=== PATIENT | female | born 1940 | race African-American/Black ===

== ENCOUNTER 2016-07-02 09:05 | Inpatient (IN) | payer OTHER ==
[~2016-07-02] VITALS: Ht 157.5 cm; Wt 54.9 kg
[~2016-07-02 09:05] MED LIST: AMLO10TA4 PO; AMOX1TAB61 PO; APIX5TAB PO; CIPR250T PO; FURO40TA4 PO; IPRA4AER IH; LOSA50TA2 PO; METH4TAB2 PO; POTA20TA4 PO; PROAIR HFA8.5 GM IH; VALS320T2 PO
--- NOTE | 2016-07-02 09:10 | PHYS DOC ---
Past Medical History Past Medical History: COPD, Hypertension, Other Additional Past Medical Histor: SARCOIDOSIS, IRREGULAR HEART RHYTHM,ANDREAFSKI Past Surgical History: Hysterectomy Alcohol Use: None Drug Use: None Adult General Chief Complaint Chief Complaint: COUGH HPI HPI Patient is a 76 year old female who presents with productive cough. She states this started approximately week ago. She states her shortness of breath is consistent. She denies any fevers chills nausea or vomiting. She states her inhalers are helping her. Review of Systems Review of Systems Constitutional: Denies fever or chills [] Eyes: Denies change in visual acuity, redness, or eye pain [] HENT: Denies nasal congestion or sore throat [] Respiratory: Positive for productive cough Cardiovascular: No additional information not addressed in HPI [] GI: Denies abdominal pain, nausea, vomiting, bloody stools or diarrhea [] : Denies dysuria or hematuria [] Musculoskeletal: Denies back pain or joint pain [] Integument: Denies rash or skin lesions [] Neurologic: Denies headache, focal weakness or sensory changes [] Endocrine: Denies polyuria or polydipsia [] Current Medications Current Medications Current Medications Medications (Trade) Dose Ordered Sig/Jerod Start Time Stop Time Status Last Admin Dose Admin Albuterol/ Ipratropium (Duoneb) 3 ml 1X ONCE 07/02/16 10:00 07/02/16 10:05 DC 07/02/16 10:16 3 ML Azithromycin (Zithromax 500mg Ivpb For Omni) 250 ml @ 250 mls/hr 1X ONCE 07/02/16 10:00 07/02/16 10:59 DC 07/02/16 11:32 250 MLS/HR Methylprednisolone Sodium Succinate (Solu-Medrol 125mg Vial) 125 mg 1X ONCE 07/02/16 10:00 07/02/16 10:05 DC 07/02/16 11:31 125 MG Allergies Allergies Allergies Coded Allergies Type Severity Reaction Last Updated Verified No Known Drug Allergies 06/26/14 No Physical Exam Physical Exam Constitutional: Well developed, well nourished, no acute distress, non-toxic appearance. [] HENT: Normocephalic, atraumatic, bilateral external ears normal, oropharynx moist, no oral exudates, nose normal. [] Eyes: PERRLA, EOMI, conjunctiva normal, no discharge. [] Neck: Normal range of motion, no tenderness, supple, no stridor. [] Cardiovascular:Heart rate regular rhythm, no murmur [] Lungs & Thorax: Decreased breath sounds with mild expiratory wheezing bilaterally. Abdomen: Bowel sounds normal, soft, no tenderness, no masses, no pulsatile masses. [] Skin: Warm, dry, no erythema, no rash. [] Back: No tenderness, no CVA tenderness. [] Extremities: No tenderness, no cyanosis, no clubbing, ROM intact, no edema. [] Neurologic: Alert and oriented X 3, normal motor function, normal sensory function, no focal deficits noted. [] Psychologic: Affect normal, judgement normal, mood normal. [] Current Patient Data Vital Signs Vital Signs Date Time Temp Pulse Resp B/P Pulse Ox O2 Delivery O2 Flow Rate FiO2 07/02/16 12:19 80 130/95 98 Nasal Cannula 4 07/02/16 09:43 24 Lab Values Laboratory Tests Test 07/02/16 10:05 White Blood Count 10.5x10^3/uL (4.0-11.0) Red Blood Count 3.29x10^6/uL (3.50-5.40) L Hemoglobin 10.2g/dL (12.0-15.5) L Hematocrit 30.7% (36.0-47.0) L Mean Corpuscular Volume 93fL (79-100) Mean Corpuscular Hemoglobin 31pg (25-35) Mean Corpuscular Hemoglobin Concent 33g/dL (31-37) Red Cell Distribution Width 15.2% (11.5-14.5) H Platelet Count 278x10^3/uL (140-400) Neutrophils (%) (Auto) 77% (31-73) H Lymphocytes (%) (Auto) 5% (24-48) L Monocytes (%) (Auto) 17% (0-9) H Eosinophils (%) (Auto) 0% (0-3) Basophils (%) (Auto) 0% (0-3) Neutrophils # (Auto) 8.1x10^3uL (1.8-7.7) H Lymphocytes # (Auto) 0.5x10^3/uL (1.0-4.8) L Monocytes # (Auto) 1.8x10^3/uL (0.0-1.1) H Eosinophils # (Auto) 0.0x10^3/uL (0.0-0.7) Basophils # (Auto) 0.0x10^3/uL (0.0-0.2) Segmented Neutrophils % 81% (35-66) H Lymphocytes % 4% (24-48) L Atypical Lymphocytes % (Manual) 1% (0-0) H Monocytes % 13% (0-10) H Eosinophils % 1% (0-5) Platelet Estimate Adequate (ADEQUATE) Anisocytosis Present Sodium Level 140mmol/L (136-145) Potassium Level 3.3mmol/L (3.5-5.1) L Chloride Level 102mmol/L (98-107) Carbon Dioxide Level 31mmol/L (21-32) Anion Gap 7 (6-14) Blood Urea Nitrogen 30mg/dL (7-20) H Creatinine 1.0mg/dL (0.6-1.0) Estimated GFR (Cockcroft-Gault) 64.9 Glucose Level 111mg/dL (70-99) H Calcium Level 9.0mg/dL (8.5-10.1) Magnesium Level 1.9mg/dL (1.8-2.4) Total Bilirubin 1.2mg/dL (0.2-1.0) H Direct Bilirubin 0.5mg/dL (0.0-0.2) H Aspartate Amino Transferase (AST) 40U/L (15-37) H Alanine Aminotransferase (ALT) 44U/L (14-59) Alkaline Phosphatase 95U/L (46-116) Creatine Kinase 500U/L (26-192) H Creatine Kinase MB (Mass) 3.5ng/mL (0.0-3.6) Creatine Kinase MB Relative Index 0.7% (0-4) Troponin I Quantitative < 0.017ng/mL (0.000-0.055) JU-Ptz-H-Type Natriuretic Peptide 3306pg/mL (0-449) H Total Protein 8.0g/dL (6.4-8.2) Albumin 2.7g/dL (3.4-5.0) L Thyroid Stimulating Hormone (TSH) 1.285uIU/mL (0.358-3.74) Laboratory Tests 07/02/16 10:05 Laboratory Tests 07/02/16 10:05 EKG EKG EKG shows sinus rhythm with a rate of [address] elevations, T-wave inversions noted in lead 3, QTC 431 ms, normal axis, as interpreted me. Radiology/Procedures Radiology/Procedures [facility] [address] [place] [address] IMAGING REPORT Signed PATIENT: ESSENCE DE JESUS ACCOUNT: [id number] : 1940 LOCATION: ER AGE: 76 SEX: F EXAM STATUS: REG ER ORD. PHYSICIAN: KRISTA ADAMES MD REASON: soa PROCEDURE: PORTABLE CHEST 1V Portable AP upright chest x-ray performed at 09 41 Indications: COPD. Productive cough for past week. Comparison: April 27, 2016. Increasing bilateral perihilar lung infiltrates are seen. Small bilateral pleural effusions are seen. The heart size is prominent but stable. The mediastinum is unchanged. Old calcified atheromatous disease is seen. No pneumothorax is evident. IMPRESSION: Enlarging perihilar lung infiltrates. This may represent pneumonia or aspiration pneumonitis. DICTATED and SIGNED BY: NATASHA ALVAREZ MD DATE: 07/02/16 1044 CC: KRISTA ADAMES MD; PAOLA MORALES MD ~ Impressions: COPD exacerbation Course & Med Decision Making Course & Med Decision Making Pertinent Labs and Imaging studies reviewed. (See chart for details) X-ray is read out as aspiration versus worsening pneumonia. Patient was given Solu-Medrol, nebs and azithromycin. Blood cultures have been obtained. We'll admit to hospitalist with pulmonary consultation. The patient's in stable condition at this time. Dragon Disclaimer Dragon Disclaimer This electronic medical record was generated, in whole or in part, using a voice recognition dictation system. Departure Departure Impression: Primary Impression: COPD exacerbation Disposition: ADMITTED INPATIENT Admitting Physician: Martha Thornton Condition: STABLE Referrals: PAOLA MORALES MD (PCP) KRISTA ADAMES MD Jul 02, 2016 09:09
[2016-07-02] MEDS ORDERED: IPRATRPIUM/ALBUTEROL 0.5/2.5MG 3 ML NEBU. NEB ONE (10:00)
[2016-07-02] MEDS ORDERED: AZITHRMYCN 500MG IVPB FOR OMNI 250 ML IV ONE (10:00)
[2016-07-02] MEDS ORDERED: methylPREDNISolone SOD SUCC PF 125 MG/2 ML VIAL. IV ONE (10:00)
[2016-07-02 10:28] LABS: BASO % 0 % (0-3); EOS % 0 % (0-3); HEMATOCRIT 30.7 % (36.0-47.0); HEMOGLOBIN 10.2 g/dL (12.0-15.5); LYMPH # 0.5 x10^3/uL (1.0-4.8); LYMPH % 5 % (24-48); MEAN CORPUSCULAR HEMOGLOBIN 31 pg (25-35); MEAN CORPUSCULAR HGB CONC 33 g/dL (31-37); MEAN CORPUSCULAR VOLUME 93 fL (79-100); MONO % 17 % (0-9); NEUT % 77 % (31-73); PLATELET COUNT 278 x10^3/uL (140-400); RED BLOOD COUNT 3.29 x10^6/uL (3.50-5.40); RED CELL DISTRIBUTION WIDTH 15.2 % (11.5-14.5); WHITE BLOOD COUNT 10.5 x10^3/uL (4.0-11.0)
[2016-07-02 10:33] LABS: GFR 64.9; POTASSIUM 3.3 mmol/L (3.5-5.1)
[2016-07-02 10:40] LABS: ALBUMIN 2.7 g/dL (3.4-5.0); DIRECT BILIRUBIN 0.5 mg/dL (0.0-0.2); MAGNESIUM 1.9 mg/dL (1.8-2.4); TOTAL BILIRUBIN 1.2 mg/dL (0.2-1.0)
--- NOTE | 2016-07-02 10:49 | RAD ---
Portable AP upright chest x-ray performed at 09 41 Indications: COPD. Productive cough for past week. Comparison: April 27, 2016. Increasing bilateral perihilar lung infiltrates are seen. Small bilateral pleural effusions are seen. The heart size is prominent but stable. The mediastinum is unchanged. Old calcified atheromatous disease is seen. No pneumothorax is evident. IMPRESSION: Enlarging perihilar lung infiltrates. This may represent pneumonia or aspiration pneumonitis.
[2016-07-02 10:50] LABS: CKMB INDEX 0.7 % (0-4); CKMB MASS 3.5 ng/mL (0.0-3.6)
[2016-07-02 11:36] LABS: % EOS 1 % (0-5)
[2016-07-02 11:37] LABS: ANISOCYTOSIS PRESENT; PLT ESTIMATE ADEQUATE (ADEQUATE)
[2016-07-02 12:45] LABS: BILIRUBIN,URINE SMALL (NEG); GLUCOSE,URINE NEGATIVE (NEG); NITRITE,URINE NEGATIVE (NEG); PROTEIN,URINE 30 mg/dL (NEG-TRACE)
[2016-07-02 12:54] LABS: BACTERIA,URINE 0 /HPF (0-FEW); RBC,URINE 20-40 /HPF (0-2); SQUAMOUS EPITHELIAL CELL,UR MOD /LPF
--- NOTE | 2016-07-02 14:05 | EKG ---
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
[2016-07-02] MEDS ORDERED: IPRATRPIUM/ALBUTEROL 0.5/2.5MG 3 ML NEBU. ONE (16:45)
--- NOTE | 2016-07-02 18:17 | ACF ---
Admission Forms Criteria COPD Clinical Indications for Admission to Inpatient Care (Place 'X' for any and all applicable criteria): Admission is indicated for ANY ONE of the following (1)(2)(3): [X]I. Acute exacerbation by high-risk comorbidity (e.g., pneumonia, dysrhythmia, heart failure, pleural effusion, pneumothorax) or severe underlying COPD (e.g., steroid dependent) [ ]II. Inpatient admission required rather than observation care (see Chronic Obstructive Pulmonary Disease: Observation Care) because of ANY ONE of the following: [ ]a) New or pre-existing signs or symptoms of COPD (eg, dyspnea or Tachypnea at rest or with minimal activity) that persist despite outpatient and observation care treatment [ ]b) New-onset hypoxemia (room air SaO2 less than 90%, PO2 less than 60 mm Hg (8.0 kPa)) that persists despite outpatient and observation care treatment [ ]c) Worsening of pre-existing hypoxemia (eg, new or increased requirement for supplemental oxygen to maintain oxygenation at baseline level) that persists despite outpatient and observation care treatment, with oxygen treatment needs performable only in acute inpatient setting [ ]d) Hypercarbia (PCO2 greater than 40 mm Hg (5.3 kPa))-induced respiratory acidosis (pH less than 7.35) that persists despite outpatient and observation care treatment [ ]e) Supplemental oxygen or respiratory treatments for over 24 hours that are performable only in acute inpatient setting [ ]f) Chest tube placement with active evacuation (e.g., suction, drainage) (5) [ ]g) Other condition, treatment or monitoring requiring inpatient admission [ ]III. Planned invasive surgical or diagnostic procedures requiring acute- care hospitalization [ ]IV. Acute respiratory failure (e.g., uncompensated hypercarbia, severe hypoxemia) [ ]V. Severe comorbid condition (e.g., severe steroid myopathy, acute vertebral fracture) that has acutely worsened pulmonary function [ ]. Confusion state, lethargy, obtundation, stupor or coma Extended stay beyond goal length of stay may be needed for (31)(32): [ ]a ) Respiratory Failure. [ ]b) Severe or persisting hypoxemia or hypercarbia [ ]c) Severe or persistent dyspnea [ ]d) Comorbidities (e.g. chronic heart failure, atrial fibrillation with rapid response, pneumonia) [ ]e) Malnutrition The original [facility] content created by [facility] has been revised. The portions of the content which have been revised are identified through the use of italic text or in bold, and [facility] has neither reviewed nor approved the modified material. All other unmodified content is copyright [facility]. Please see references footnoted in the original [facility] edition 2016 Admission Criteria Met?: Yes AMIE NIEVES Jul 02, 2016 18:17
[2016-07-02 19:00] VITALS: BP 112/60
--- NOTE | 2016-07-02 20:15 | HP ---
ADMIT DATE: 07/02/2016 CHIEF COMPLAINT: Shortness of breath, cough, and wheezing. HISTORY OF PRESENT ILLNESS: The patient is a pleasant 76-year-old female who has known COPD, although she states she quit smoking years ago. She also has sarcoidosis and basically presented to the ER with shortness breath and cough. Clinically, she sounds like she has aspiration. She is quite gurgling her upper airway. She is coarsed. She is coughing. She is hypoxic. I discussed the case with the ER physician. We suspect she has aspiration pneumonia. We are going to admit the patient and consult pulmonary medicine. PAST MEDICAL HISTORY: Previous tobacco abuse, although she states she quit years ago, sarcoidosis, cardiac arrhythmias, and hysterectomy. ALLERGIES: None. FAMILY HISTORY: Coronary artery disease. SOCIAL HISTORY: She quit smoking, no drinking or drugs. MEDICATIONS: Reviewed, please refer to the MRAD. REVIEW OF SYSTEMS: GENERAL: No history of weight change, weakness or fevers. SKIN: No bruising, hair changes or rashes. EYES: No blurred, double or loss of vision. NOSE AND THROAT: No history of nosebleeds, hoarseness or sore throat. HEART: No history of palpitations, chest pain or shortness of breath on exertion. LUNGS: She complains of shortness of breath and cough. GASTROINTESTINAL: Denies changes in appetite, nausea, vomiting, diarrhea or constipation. GENITOURINARY: No history of frequency, urgency, hesitancy or nocturia. NEUROLOGIC: Denies history of numbness, tingling, tremor or weakness. PSYCHIATRIC: No history of panic, anxiety or depression. ENDOCRINE: No history of heat or cold intolerance, polyuria or polydipsia. EXTREMITIES: Denies muscle weakness, joint pain, pain on walking or stiffness. PHYSICAL EXAMINATION: VITAL SIGNS: Temperature afebrile, pulse 67, respirations 24, and blood pressure 113/90. GENERAL: She is alert, talkative, but very coarse sounds. She sounds sick at the bedside. HEART: Distant S1, S2. LUNGS: Very coarse, she has got coughing, she has got gurgling in her upper airway. ABDOMEN: Positive bowel sounds. EXTREMITIES: No edema. SKIN: No rashes. PSYCHIATRIC: She is anxious. VASCULAR: Good capillary refill. ENDOCRINE: No thyromegaly. LYMPHATICS: No cervical nodes. HEMATOPOIETIC: No bruising. LABORATORY DATA: White count 10, hemoglobin 10, and platelets 278. Electrolytes: Sodium 140, potassium 3.3, chloride 102, bicarbonate 31, BUN is 30, creatinine 1.0, glucose 111. CPK is 500, troponin is 0, BNP 3306. DIAGNOSTIC DATA: Chest x-ray shows aspiration pneumonia. ASSESSMENT AND PLAN: 1. Respiratory failure with aspiration pneumonia and chronic obstructive pulmonary disease. 2. Hypokalemia, probable acute on chronic systolic and diastolic heart failure and perhaps even a mild case of rhabdomyolysis with the CPK of 500. The patient has been admitted. We will give her intravenous antibiotics, breathing treatments, oxygen and steroids. Consult Dr. Morales, consult Cardiology. We will try to diurese her. Continue her home medicines. PROGNOSIS: Guarded. EMILY CUEVAS DO DR: FREDERICK/cate JOB#: [id number] / [id number]
[2016-07-02 23:00] VITALS: BP 103/57
[2016-07-03] MEDS ORDERED: GUAIFENESIN DM 200MG/20MG 10 ML SYRUP. PO PRN
[2016-07-03] MEDS ORDERED: IPRATRPIUM/ALBUTEROL 0.5/2.5MG 3 ML NEBU. NEB ONE (00:45)
[2016-07-03 03:00] VITALS: BP 107/56
[2016-07-03 06:19] VITALS: BP 107/56
[2016-07-03 07:00] VITALS: BP 109/64
[2016-07-03] MEDS: IPRATRPIUM/ALBUTEROL 0.5/2.5MG 3 ML NEBU. NEB SCH ×3 (07:58→20:22)
--- NOTE | 2016-07-03 10:54 | PDOC2 ---
CARDIAC CONSULT DATE OF CONSULT Date of Consult DATE: 07/03/16 TIME: 10:44 REASON FOR CONSULT Reason for Consult: CHF? REFERRING PHYSICIAN Referring Physician: Hillary SOURCE Source: Chart review, Patient HISTORY OF PRESENT ILLNESS HISTORY OF PRESENT ILLNESS This is a pleasant 76 yo female admitted for complains of increased coughing and nasal congestion. This has been increasing in the last week. Reports no fever or chills and no increased Oxygen rate in which typically she uses 3LPM at rest and about 6 LPM with activity. Denies any leg swelling and complains no significant SOA or changes in her activity tolerance. She verbalized compliance with her medications. Her secretions does started to become more thick and yellow accdg to her daughter which made her a little more worried. Pt described her coughing as "rattling." Also she has not been hydrating her self well enough. No CP, nausea, vomiting or diarrhea. PAST MEDICAL HISTORY Past Medical History Cardiovascular: AFIB, CHF, HTN Pulmonary: COPD (with home O2), Pneumonia, Other (sarcoidosis) CENTRAL NERVOUS SYSTEM: Other (no pertinent hx) GI: No pertinent hx Heme/Onc: No pertinent hx Psych: Anxiety Musculoskeletal: Other (no pertinent hx) Rheumatologic: No pertinent hx Infectious disease: No pertinent hx ENT: No pertinent hx Renal/: No pertinent hx Endocrine: No pertinent hx Dermatology: No pertinent hx PAST SURGICAL HISTORY Past Surgical History: Hysterectomy FAMILY HISTORY Family History: Hypertension SOCIAL HISTORY Smoke: No (quit) ALCOHOL: none Drugs: None Lives: with Family CURRENT MEDICATIONS CURRENT MEDICATIONS Current Medications Medications (Trade) Dose Ordered Sig/Jerod Route PRN Reason Start Time Stop Time Status Last Admin Dose Admin Albuterol/ Ipratropium (Duoneb) 3 ml RTQID NEB 07/03/16 08:00 07/03/16 07:58 Albuterol/ Ipratropium (Duoneb) 3 ml 1X ONCE NEB 07/03/16 00:45 07/03/16 00:46 DC 07/03/16 00:34 ALLERGIES ALLERGIES: Coded Allergies: No Known Drug Allergies (Unverified , 06/26/14) ROS Review of System 14 point ROS evaluated with pertinent positives noted per HPI PHYSICAL EXAM General: Alert, Oriented X3, Cooperative, No acute distress HEENT: Atraumatic, Mucous membr. moist/pink, Other (JVD) Lungs: Clear to auscultation, Other (nasal congestionfaint upper wheeze) Heart: Regular rate (SR/SB with PACs), Normal S1, Normal S2, Other (3/6 systolic murmur to LLS border) Abdomen: Soft, No tenderness Extremities: No cyanosis, No edema Skin: No breakdown, No significant lesion Neuro: Normal speech, Sensation intact Psych/Mental Status: Mental status NL, Mood NL MUSCULOSKELETAL: Osteoarthritic changes both hands VITALS VITALS Vital Signs Date Time Temp Pulse Resp B/P Pulse Ox O2 Delivery O2 Flow Rate FiO2 07/03/16 07:58 88 Nasal Cannula 4.0 07/03/16 07:00 97.9 59 18 109/64 97.9 LABS Lab: Laboratory Tests Test 07/02/16 12:40 Urine Collection Type Unknown Urine Color Eleni Urine Clarity Clear Urine pH 6.0 Urine Specific Hedrick 1.025 Urine Protein 30mg/dL (NEG-TRACE) Urine Glucose (UA) Negativemg/dL (NEG) Urine Ketones (Stick) Negativemg/dL (NEG) Urine Blood Moderate (NEG) Urine Nitrite Negative (NEG) Urine Bilirubin Small (NEG) Urine Urobilinogen Dipstick 1.0mg/dL (0.2 mg/dL) Urine Leukocyte Esterase Trace (NEG) Urine RBC 20-40/HPF (0-2) Urine WBC 1-4/HPF (0-4) Urine Squamous Epithelial Cells Mod/LPF Urine Bacteria 0/HPF (0-FEW) Urine Hyaline Casts Many/HPF Urine Mucus Mod/LPF ECHOCARDIOGRAM ECHOCARDIOGRAM <Conclusion> The left ventricular systolic function is normal. The ejection fraction is estimated at 65-70%. There is normal LV segmental wall motion. Transmitral Doppler flow pattern is Grade I-abnormal relaxation pattern. The left atrium is mildly dilated. Doppler and Color Flow revealed mild aortic regurgitation. Doppler and Color-flow revealed trace mitral regurgitation. Doppler and Color Flow revealed moderate tricuspid regurgitation. There is severe pulmonary hypertension. The PA pressure was estimated at 87 mmHg. There is no evidence of significant pericardial effusion. DATE: 04/28/16 0910 ASSESSMENT/PLAN ASSESSMENT/PLAN 1. AECOPD with possible developing pneumonia vs pneumonitis via CXR: known sarcoidosis and severe pulmonary HTN. 2. Acute on Chronic diastolic CHF with small bilateral pleural effusion: symptoms and elevated pro NT BNP more r/t to pulmonary issues. Appears compensated currently 3. PAFIB: SR with PACs. 4. Chronic Normocytic anemia: Hgb 10.2 5. Prerenal azotemia: r/t inadequate po intake. 6. Hypokalemia 7. HTN: mainly at low end 8. UTI? Recommendations 1. Replace K 2. Recent TTE with normal EF and LV function, Known intolerance to AV sid blocking agents. Continue on eliquis 3. Push fluids. PCXR today 4. Hold losartan/amlodipine today 5. Follow pulmonary recommendation Problems: JJ WILSON CLINICAL CARE LEADER Jul 03, 2016 10:54
[2016-07-03 11:00] VITALS: BP 129/62
[2016-07-03 12:06] LABS: CALCIUM 9.4 mg/dL (8.5-10.1); GFR 64.9; MAGNESIUM 2.2 mg/dL (1.8-2.4); POTASSIUM 3.4 mmol/L (3.5-5.1)
--- NOTE | 2016-07-03 12:56 | PDOC ---
PROGRESS NOTES Chief Complaint Chief Complaint cc: cough A/P Acute respiratory distress Possible Bronchitis Chronic respiratory failure ? Afib HTN Plan PRN Nebulizations home medications reconciled, continue oxygen Pulmonology and cardiology following History of Present Illness History of Present Illness cough no fever no chills doing better. Vitals Vitals Vital Signs Date Time Temp Pulse Resp B/P Pulse Ox O2 Delivery O2 Flow Rate FiO2 07/03/16 12:32 92 Nasal Cannula 4.0 07/03/16 11:00 97.6 65 20 129/62 97.6 Physical Exam General: Alert, Oriented X3 Heart: Normal S1, Normal S2 Lungs: Clear, Crackles Abdomen: Normal bowel sounds Extremities: No clubbing Labs LABS Laboratory Tests Test 07/03/16 11:23 Sodium Level 141mmol/L (136-145) Potassium Level 3.4mmol/L (3.5-5.1) Chloride Level 99mmol/L (98-107) Carbon Dioxide Level 32mmol/L (21-32) Anion Gap 10 (6-14) Blood Urea Nitrogen 36mg/dL (7-20) Creatinine 1.0mg/dL (0.6-1.0) Estimated GFR (Cockcroft-Gault) 64.9 Glucose Level 157mg/dL (70-99) Calcium Level 9.4mg/dL (8.5-10.1) Magnesium Level 2.2mg/dL (1.8-2.4) Assessment and Plan Assessmemt and Plan Problems Medical Problems: (1) COPD exacerbation Status: Acute Problems: Comment Review of Relevant I have reviewed the following items julian (where applicable) has been applied. Labs Laboratory Tests Test 07/02/16 10:05 07/02/16 12:40 07/03/16 11:23 White Blood Count 10.5x10^3/uL (4.0-11.0) Red Blood Count 3.29x10^6/uL (3.50-5.40) Hemoglobin 10.2g/dL (12.0-15.5) Hematocrit 30.7% (36.0-47.0) Mean Corpuscular Volume 93fL (79-100) Mean Corpuscular Hemoglobin 31pg (25-35) Mean Corpuscular Hemoglobin Concent 33g/dL (31-37) Red Cell Distribution Width 15.2% (11.5-14.5) Platelet Count 278x10^3/uL (140-400) Neutrophils (%) (Auto) 77% (31-73) Lymphocytes (%) (Auto) 5% (24-48) Monocytes (%) (Auto) 17% (0-9) Eosinophils (%) (Auto) 0% (0-3) Basophils (%) (Auto) 0% (0-3) Neutrophils # (Auto) 8.1x10^3uL (1.8-7.7) Lymphocytes # (Auto) 0.5x10^3/uL (1.0-4.8) Monocytes # (Auto) 1.8x10^3/uL (0.0-1.1) Eosinophils # (Auto) 0.0x10^3/uL (0.0-0.7) Basophils # (Auto) 0.0x10^3/uL (0.0-0.2) Segmented Neutrophils % 81% (35-66) Lymphocytes % 4% (24-48) Atypical Lymphocytes % (Manual) 1% (0-0) Monocytes % 13% (0-10) Eosinophils % 1% (0-5) Platelet Estimate Adequate (ADEQUATE) Anisocytosis Present Sodium Level 140mmol/L (136-145) 141mmol/L (136-145) Potassium Level 3.3mmol/L (3.5-5.1) 3.4mmol/L (3.5-5.1) Chloride Level 102mmol/L (98-107) 99mmol/L (98-107) Carbon Dioxide Level 31mmol/L (21-32) 32mmol/L (21-32) Anion Gap 7 (6-14) 10 (6-14) Blood Urea Nitrogen 30mg/dL (7-20) 36mg/dL (7-20) Creatinine 1.0mg/dL (0.6-1.0) 1.0mg/dL (0.6-1.0) Estimated GFR (Cockcroft-Gault) 64.9 64.9 Glucose Level 111mg/dL (70-99) 157mg/dL (70-99) Calcium Level 9.0mg/dL (8.5-10.1) 9.4mg/dL (8.5-10.1) Magnesium Level 1.9mg/dL (1.8-2.4) 2.2mg/dL (1.8-2.4) Total Bilirubin 1.2mg/dL (0.2-1.0) Direct Bilirubin 0.5mg/dL (0.0-0.2) Aspartate Amino Transf (AST/SGOT) 40U/L (15-37) Alanine Aminotransferase (ALT/SGPT) 44U/L (14-59) Alkaline Phosphatase 95U/L (46-116) Creatine Kinase 500U/L (26-192) Creatine Kinase MB (Mass) 3.5ng/mL (0.0-3.6) Creatine Kinase MB Relative Index 0.7% (0-4) Troponin I Quantitative < 0.017ng/mL (0.000-0.055) RV-Wcy-C-Type Natriuretic Peptide 3306pg/mL (0-449) Total Protein 8.0g/dL (6.4-8.2) Albumin 2.7g/dL (3.4-5.0) Thyroid Stimulating Hormone (TSH) 1.285uIU/mL (0.358-3.74) Urine Collection Type Unknown Urine Color Eleni Urine Clarity Clear Urine pH 6.0 Urine Specific [place] 1.025 Urine Protein 30mg/dL (NEG-TRACE) Urine Glucose (UA) Negativemg/dL (NEG) Urine Ketones (Stick) Negativemg/dL (NEG) Urine Blood Moderate (NEG) Urine Nitrite Negative (NEG) Urine Bilirubin Small (NEG) Urine Urobilinogen Dipstick 1.0mg/dL (0.2 mg/dL) Urine Leukocyte Esterase Trace (NEG) Urine RBC 20-40/HPF (0-2) Urine WBC 1-4/HPF (0-4) Urine Squamous Epithelial Cells Mod/LPF Urine Bacteria 0/HPF (0-FEW) Urine Hyaline Casts Many/HPF Urine Mucus Mod/LPF Laboratory Tests Test 07/03/16 11:23 Sodium Level 141mmol/L (136-145) Potassium Level 3.4mmol/L (3.5-5.1) Chloride Level 99mmol/L (98-107) Carbon Dioxide Level 32mmol/L (21-32) Anion Gap 10 (6-14) Blood Urea Nitrogen 36mg/dL (7-20) Creatinine 1.0mg/dL (0.6-1.0) Estimated GFR (Cockcroft-Gault) 64.9 Glucose Level 157mg/dL (70-99) Calcium Level 9.4mg/dL (8.5-10.1) Magnesium Level 2.2mg/dL (1.8-2.4) Microbiology 07/02/16 Blood Culture - Preliminary, Resulted NO GROWTH AFTER 1 DAY Medications Current Medications Azithromycin (Zithromax 500mg Ivpb For Omni) 250 ml @ 250 mls/hr 1X ONCE IV Last administered on 07/02/16 11:32; Start 07/02/16 at 10:00; Stop 07/02/16 at 10:59; Status DC Methylprednisolone Sodium Succinate (Solu-Medrol 125mg Vial) 125 mg 1X ONCE IV Last administered on 07/02/16 11:31; Start 07/02/16 at 10:00; Stop 07/02/16 at 10:05; Status DC Albuterol/ Ipratropium (Duoneb) 3 ml 1X ONCE NEB Last administered on 10:16; Start 07/02/16 at 10:00; Stop 07/02/16 at 10:05; Status DC Albuterol/ Ipratropium (Duoneb) 3 ml STK-MED ONCE .ROUTE ; Start 07/02/16 at 16: 45; Stop 07/02/16 at 16:46; Status DC Albuterol/ Ipratropium (Duoneb) 3 ml RTQID NEB Last administered on 07/03/16 12:32; Start 07/03/16 at 08:00 Guaifenesin (Robitussin Dm) 10 ml PRN Q6HRS PRN PO COUGH; Start 07/03/16 at 00: 00 Albuterol/ Ipratropium (Duoneb) 3 ml 1X ONCE NEB Last administered on 00:34; Start 07/03/16 at 00:45; Stop 07/03/16 at 00:46; Status DC Active Scripts Active Klor-Con M20 (Potassium Chloride) 20 Meq Tab.er.prt 20 Meq PO DAILYWBKFT Cozaar (Losartan Potassium) 50 Mg Tablet 100 Mg PO DAILY Furosemide 40 Mg Tablet 40 Mg PO DAILY Reported Combivent Respimat Inhal (Ipratropium/Albuterol Sulfate) 4 Gm Aer.w.adap 1 Inh IH Q6HRS Eliquis (Apixaban) 5 Mg Tablet 5 Mg PO BID Norvasc (Amlodipine Besylate) 10 Mg Tablet 10 Mg PO DAILY Proair Hfa Inhaler (Albuterol Sulfate) 8.5 Gm Hfa.aer.ad 2 Puff IH PRN Q4-6HRS Vitals/I & O Vital Sign - Last 24 Hours 07/02/16 07/02/16 07/02/16 07/02/16 13:49 14:49 15:49 16:19 Pulse 81 63 80 Resp 24 25 B/P 138/65 138/61 62/61 146/66 Pulse Ox 93 90 91 O2 Delivery Nasal Cannula Nasal Cannula Nasal Cannula Nasal Cannula O2 Flow Rate 4 4 4 4 07/02/16 07/02/16 07/02/16 07/02/16 17:20 19:00 20:20 23:00 Temp 98.2 98.6 98.2 98.6 Pulse 101 65 Resp 15 16 B/P 112/60 103/57 Pulse Ox 85 77 O2 Delivery Nasal Cannula Nasal Cannula Nasal Cannula O2 Flow Rate 4.0 4.0 4.0 4.0 07/03/16 07/03/16 07/03/16 07/03/16 00:34 03:00 06:19 07:00 Temp 98.7 98.7 97.9 98.7 98.7 97.9 Pulse 55 55 59 Resp 16 18 B/P 107/56 107/56 109/64 Pulse Ox 90 93 93 92 O2 Delivery Nasal Cannula Nasal Cannula O2 Flow Rate 4.0 4.0 4.0 4.0 07/03/16 07/03/16 07/03/16 07:58 11:00 12:32 Temp 97.6 97.6 Pulse 65 Resp 20 B/P 129/62 Pulse Ox 88 98 92 O2 Delivery Nasal Cannula Room Air Nasal Cannula O2 Flow Rate 4.0 4.0 Intake and Output 07/02/16 07/02/16 07/03/16 15:00 23:00 07:00 Intake Total 250 ml 240 ml Balance 250 ml 240 ml JIM SLOAN MD Jul 03, 2016 12:56
[2016-07-03] MEDS ORDERED: ONDANSETRON PF 4 MG/2 ML VIAL. IV PRN (13:00)
[2016-07-03] MEDS ORDERED: HYDROCODONE/APAP 5/325MG TABLET. PO PRN (13:00)
[2016-07-03] MEDS ORDERED: NON FORMULARY ITEM (Albuterol Sulfate (Proair Hfa Inhaler) 2 PUFF) IH SCH (13:00)
[2016-07-03] MEDS ORDERED: POTASSIUM CHLORIDE 20 MEQ TABLET.ER. PO ONE ×2 (13:00→14:00)
[2016-07-03] MEDS ORDERED: ACETAMINOPHEN 325 MG TABLET. PO PRN (13:00)
[2016-07-03] MEDS ORDERED: hydrALAZINE 20 MG/ML VIAL. IVP PRN (13:00)
[2016-07-03] MEDS: POTASSIUM CHLORIDE 20 MEQ TABLET.ER. PO SCH (14:00)
[2016-07-03] MEDS ORDERED: ANTI-COAG MONITOR BY PHARMACY. MC PRN (14:00)
[2016-07-03] MEDS: FUROSEMIDE 40 MG TABLET. PO SCH ×2 (14:44→15:03)
[2016-07-03] MEDS: LOSARTAN POTASSIUM 50 MG TABLET. PO SCH ×2 (14:45→15:03)
[2016-07-03 15:00] VITALS: BP 136/68
[2016-07-03] MEDS ORDERED: FURO20TA3 PO (15:00)
[2016-07-03] MEDS ORDERED: ALPR0.5T6 PO (15:00)
--- NOTE | 2016-07-03 15:42 | PDOC ---
PULMONARY PROGRESS NOTES Vitals Vital Signs Date Time Temp Pulse Resp B/P Pulse Ox O2 Delivery O2 Flow Rate FiO2 07/03/16 15:03 74 121/58 07/03/16 12:32 92 Nasal Cannula 4.0 07/03/16 11:00 97.6 20 97.6 General: Alert, No acute distress Lungs: Clear, Crackles Cardiovascular: S1, S2 Abdomen: Soft Extremities: No Edema Labs Laboratory Tests Test 07/02/16 10:05 07/02/16 12:40 07/03/16 11:23 White Blood Count 10.5x10^3/uL (4.0-11.0) Red Blood Count 3.29x10^6/uL (3.50-5.40) Hemoglobin 10.2g/dL (12.0-15.5) Hematocrit 30.7% (36.0-47.0) Mean Corpuscular Volume 93fL (79-100) Mean Corpuscular Hemoglobin 31pg (25-35) Mean Corpuscular Hemoglobin Concent 33g/dL (31-37) Red Cell Distribution Width 15.2% (11.5-14.5) Platelet Count 278x10^3/uL (140-400) Neutrophils (%) (Auto) 77% (31-73) Lymphocytes (%) (Auto) 5% (24-48) Monocytes (%) (Auto) 17% (0-9) Eosinophils (%) (Auto) 0% (0-3) Basophils (%) (Auto) 0% (0-3) Neutrophils # (Auto) 8.1x10^3uL (1.8-7.7) Lymphocytes # (Auto) 0.5x10^3/uL (1.0-4.8) Monocytes # (Auto) 1.8x10^3/uL (0.0-1.1) Eosinophils # (Auto) 0.0x10^3/uL (0.0-0.7) Basophils # (Auto) 0.0x10^3/uL (0.0-0.2) Segmented Neutrophils % 81% (35-66) Lymphocytes % 4% (24-48) Atypical Lymphocytes % (Manual) 1% (0-0) Monocytes % 13% (0-10) Eosinophils % 1% (0-5) Platelet Estimate Adequate (ADEQUATE) Anisocytosis Present Sodium Level 140mmol/L (136-145) 141mmol/L (136-145) Potassium Level 3.3mmol/L (3.5-5.1) 3.4mmol/L (3.5-5.1) Chloride Level 102mmol/L (98-107) 99mmol/L (98-107) Carbon Dioxide Level 31mmol/L (21-32) 32mmol/L (21-32) Anion Gap 7 (6-14) 10 (6-14) Blood Urea Nitrogen 30mg/dL (7-20) 36mg/dL (7-20) Creatinine 1.0mg/dL (0.6-1.0) 1.0mg/dL (0.6-1.0) Estimated GFR (Cockcroft-Gault) 64.9 64.9 Glucose Level 111mg/dL (70-99) 157mg/dL (70-99) Calcium Level 9.0mg/dL (8.5-10.1) 9.4mg/dL (8.5-10.1) Magnesium Level 1.9mg/dL (1.8-2.4) 2.2mg/dL (1.8-2.4) Total Bilirubin 1.2mg/dL (0.2-1.0) Direct Bilirubin 0.5mg/dL (0.0-0.2) Aspartate Amino Transf (AST/SGOT) 40U/L (15-37) Alanine Aminotransferase (ALT/SGPT) 44U/L (14-59) Alkaline Phosphatase 95U/L (46-116) Creatine Kinase 500U/L (26-192) Creatine Kinase MB (Mass) 3.5ng/mL (0.0-3.6) Creatine Kinase MB Relative Index 0.7% (0-4) Troponin I Quantitative < 0.017ng/mL (0.000-0.055) ZF-Tjo-Y-Type Natriuretic Peptide 3306pg/mL (0-449) Total Protein 8.0g/dL (6.4-8.2) Albumin 2.7g/dL (3.4-5.0) Thyroid Stimulating Hormone (TSH) 1.285uIU/mL (0.358-3.74) Urine Collection Type Unknown Urine Color Eleni Urine Clarity Clear Urine pH 6.0 Urine Specific [place] 1.025 Urine Protein 30mg/dL (NEG-TRACE) Urine Glucose (UA) Negativemg/dL (NEG) Urine Ketones (Stick) Negativemg/dL (NEG) Urine Blood Moderate (NEG) Urine Nitrite Negative (NEG) Urine Bilirubin Small (NEG) Urine Urobilinogen Dipstick 1.0mg/dL (0.2 mg/dL) Urine Leukocyte Esterase Trace (NEG) Urine RBC 20-40/HPF (0-2) Urine WBC 1-4/HPF (0-4) Urine Squamous Epithelial Cells Mod/LPF Urine Bacteria 0/HPF (0-FEW) Urine Hyaline Casts Many/HPF Urine Mucus Mod/LPF Laboratory Tests Test 07/03/16 11:23 Sodium Level 141mmol/L (136-145) Potassium Level 3.4mmol/L (3.5-5.1) Chloride Level 99mmol/L (98-107) Carbon Dioxide Level 32mmol/L (21-32) Anion Gap 10 (6-14) Blood Urea Nitrogen 36mg/dL (7-20) Creatinine 1.0mg/dL (0.6-1.0) Estimated GFR (Cockcroft-Gault) 64.9 Glucose Level 157mg/dL (70-99) Calcium Level 9.4mg/dL (8.5-10.1) Magnesium Level 2.2mg/dL (1.8-2.4) Medications Active Scripts Medications Dose Route/Sig Days Date Category Alprazolam 0.5 Mg Tablet 1 Tab PO BID 07/03/16 Reported Furosemide 20 Mg Tablet 1 Tab PO DAILY 07/03/16 Reported Klor-Con M20 (Potassium Chloride) 20 Meq Tab.er.prt 20 Meq PO DAILYWBKFT 04/28/16 Rx Cozaar (Losartan Potassium) 50 Mg Tablet 100 Mg PO DAILY 04/28/16 Rx Combivent Respimat Inhal (Ipratropium/Albuterol Sulfate) 4 Gm Aer.w.adap 1 Inh IH Q6HRS 06/28/15 Reported Eliquis (Apixaban) 5 Mg Tablet 5 Mg PO BID 06/26/15 Reported Norvasc (Amlodipine Besylate) 10 Mg Tablet 10 Mg PO DAILY 06/26/15 Reported Proair Hfa Inhaler (Albuterol Sulfate) 8.5 Gm Hfa.aer.ad 2 Puff IH PRN Q4-6HRS 06/26/14 Reported Impression . FULL NOTE DICTATED ACUTE RESP FAILURE SEC TO ACUTE EDEMA/ POSSIBLE ASPIRATION JT ISAAC MD Jul 03, 2016 15:42
[2016-07-03] MEDS ORDERED: PIP/TAZO PER PHARMACY MC PRN (15:45)
--- NOTE | 2016-07-03 16:42 | RAD ---
AP portable chest radiograph 07/03/2016 Clinical History: Shortness of breath. An AP portable erect digital radiograph of the chest was obtained. Comparison study is dated 07/02/2016. The cardiac silhouette is mildly enlarged. The thoracic aorta is minimally tortuous. Bilateral perihilar infiltrates are seen. The left perihilar infiltrate has improved slightly. No pneumothorax is seen. Blunting of the right costophrenic angle is noted which could reflect pleural thickening versus a small right pleural effusion. The osseous structures are unchanged. Impression: Bilateral perihilar infiltrates. There has been slight improvement in the left perihilar infiltrate.
[2016-07-03] MEDS ORDERED: NON FORMULARY ITEM (Ipratropium/Albuterol Sulfate (Combivent Respimat Inhal) 1 INH) IH SCH (18:00)
[2016-07-03 19:00] VITALS: BP 123/67
[2016-07-03] MEDS: PIPERACILLIN/TAZOBACTAM 3.375 GM in IV NORMAL SALINE 50ML 50 ML IV SCH (19:27)
[2016-07-03] MEDS: APIXABAN 5 MG TABLET. PO SCH (22:29)
[2016-07-04] MEDS: IPRATRPIUM/ALBUTEROL 0.5/2.5MG 3 ML NEBU. NEB SCH ×3 (00:08→12:24)
[2016-07-04] MEDS: PIPERACILLIN/TAZOBACTAM 3.375 GM in IV NORMAL SALINE 50ML 50 ML IV SCH ×3 (02:39→12:45)
[2016-07-04 03:00] VITALS: BP 104/53
[2016-07-04 07:00] VITALS: BP 128/67
[2016-07-04 07:26] LABS: BASO % 0 % (0-3); EOS % 0 % (0-3); HEMATOCRIT 31.8 % (36.0-47.0); LYMPH # 0.7 x10^3/uL (1.0-4.8); LYMPH % 4 % (24-48); MEAN CORPUSCULAR HEMOGLOBIN 30 pg (25-35); MEAN CORPUSCULAR HGB CONC 32 g/dL (31-37); MEAN CORPUSCULAR VOLUME 96 fL (79-100); MONO % 10 % (0-9); NEUT % 86 % (31-73); PLATELET COUNT 366 x10^3/uL (140-400); RED BLOOD COUNT 3.33 x10^6/uL (3.50-5.40); RED CELL DISTRIBUTION WIDTH 15.2 % (11.5-14.5); WHITE BLOOD COUNT 17.9 x10^3/uL (4.0-11.0)
[2016-07-04 07:27] LABS: CREATININE 1.1 mg/dL (0.6-1.0); GFR 58.1; POTASSIUM 4.3 mmol/L (3.5-5.1)
--- NOTE | 2016-07-04 08:37 | CONS ---
DATE OF CONSULTATION: 07/03/2016 ATTENDING PHYSICIAN: Martha Thornton MD REASON FOR CONSULTATION: The patient is seen in pulmonary consultation at the request of Dr. Thornton for abnormal x-ray, increasing shortness of air. HISTORY OF PRESENT ILLNESS: The patient is well known to me from previous hospitalization in outpatient department. The patient presented with increasing shortness breath and shaking chill at home. No fever documented. She also heard some noise in the upper airway. She reports no vomiting. Chest x-ray was obtained, which revealed some perihilar infiltrate compatible with possibility of aspiration. PAST MEDICAL HISTORY: COPD, sarcoid, which has been in remission for quite some time, hypertension, irregular heart rhythm, and hysterectomy. PAST SURGICAL HISTORY: As above. SOCIAL HISTORY: She quit tobacco. Denies any alcohol intake. MEDICATIONS: List was reviewed. Please see the MRAD. REVIEW OF SYSTEMS: As indicated above, otherwise, a 10-point system was reviewed and negative. CONSTITUTIONAL: No fever or chills. EYES: No change in visual acuity. HEENT: ____ congestion or sore throat. RESPIRATORY: As indicated above. CARDIOVASCULAR: No chest pain or pressure. GASTROINTESTINAL: No nausea, vomiting, or diarrhea. GENITOURINARY: No dysuria or frequency. MUSCULOSKELETAL: Denies any localized muscle aches or joint pains. SKIN: No new skin rashes. NEUROLOGIC: No ____ blurred vision. ALLERGIES: No known drug allergies. PHYSICAL EXAMINATION: GENERAL: The patient was in no respiratory distress currently requiring 4 L of oxygen supplementation, saturation greater than 92%. HEENT: Eyes, the sclerae were nonicteric. NECK: Jugular venous distention was not elevated. No lymphadenopathy. CHEST: Full expansion. LUNGS: Adequate airway flow with crackles throughout. CARDIOVASCULAR: Regular rate and rhythm with S1, S2. No S3. ABDOMEN: Soft, nontender, and nondistended. EXTREMITIES: No clubbing, cyanosis or edema. NEUROLOGIC: The patient was awake, alert, following commands. A detailed neuro exam was not performed. LABORATORY DATA: White count was normal. Hemoglobin and hematocrit were noted. Electrolytes were noted. Potassium was low. BUN was elevated. BNP was elevated. Albumin was low. IMPRESSION: 1. Acute on chronic respiratory failure secondary to acute heart failure. 2. Possible pneumonia, aspiration. 3. Chronic obstructive pulmonary disease. 4. History of sarcoid, which has been in remission for quite some time. 5. Elevated troponin level. 6. Moderate protein malnutrition, present upon admission. PLAN: 1. Recommend diuresis for now along with antibiotics to cover for aspiration pneumonia. 2. We will obtain office records. 3. Repeat chest x-ray in a couple of days. 4. Check procalcitonin level. I do appreciate the privilege in sharing in the patient's care. JT ISAAC MD DR: CELE/cate JOB#: [id number] / [id number]
[2016-07-04] MEDS ORDERED: AMLODIPINE BESYLATE 10 MG TABLET. PO SCH (09:00)
[2016-07-04] MEDS: POTASSIUM CHLORIDE 20 MEQ TABLET.ER. PO SCH (10:06)
[2016-07-04] MEDS: APIXABAN 5 MG TABLET. PO SCH (10:06)
[2016-07-04] MEDS: FUROSEMIDE 40 MG TABLET. PO SCH (10:07)
[2016-07-04] MEDS: LOSARTAN POTASSIUM 50 MG TABLET. PO SCH (10:08)
[2016-07-04 11:00] VITALS: BP 120/73
[2016-07-04] MEDS: ALBUTEROL SULFATE 2.5 MG/3 ML NEBU. NEB PRN ×2 (12:23→12:27)
--- NOTE | 2016-07-04 12:26 | PDOC ---
CARDIO Progress Notes Date and Time Date of Service 07/04/2016 Time of Evaluation 1115 Subjective Subjective: No Chest Pain, No shortness of breath, No Palpitations, No Dizziness, Other (ambulated in hallway with good tolerance) Vitals Vitals Vital Signs Date Time Temp Pulse Resp B/P Pulse Ox O2 Delivery O2 Flow Rate FiO2 07/04/16 11:00 97.9 70 20 120/73 94 Nasal Cannula 4.0 97.9 Weight Weight [ ] Input and Output Intake and Output Intake and Output 07/04/16 06:59 Intake Total 2130 ml Output Total 1050 ml Balance 1080 ml Intake Oral 2130 ml Output Urine Total 1050 ml # Voids 3 # Bowel Movements 2 Laboratory Labs Laboratory Tests Test 07/04/16 06:45 White Blood Count 17.9x10^3/uL (4.0-11.0) Red Blood Count 3.33x10^6/uL (3.50-5.40) Hemoglobin 10.0g/dL (12.0-15.5) Hematocrit 31.8% (36.0-47.0) Mean Corpuscular Volume 96fL (79-100) Mean Corpuscular Hemoglobin 30pg (25-35) Mean Corpuscular Hemoglobin Concent 32g/dL (31-37) Red Cell Distribution Width 15.2% (11.5-14.5) Platelet Count 366x10^3/uL (140-400) Neutrophils (%) (Auto) 86% (31-73) Lymphocytes (%) (Auto) 4% (24-48) Monocytes (%) (Auto) 10% (0-9) Eosinophils (%) (Auto) 0% (0-3) Basophils (%) (Auto) 0% (0-3) Neutrophils # (Auto) 15.5x10^3uL (1.8-7.7) Lymphocytes # (Auto) 0.7x10^3/uL (1.0-4.8) Monocytes # (Auto) 1.7x10^3/uL (0.0-1.1) Eosinophils # (Auto) 0.0x10^3/uL (0.0-0.7) Basophils # (Auto) 0.0x10^3/uL (0.0-0.2) Sodium Level 143mmol/L (136-145) Potassium Level 4.3mmol/L (3.5-5.1) Chloride Level 102mmol/L (98-107) Carbon Dioxide Level 31mmol/L (21-32) Anion Gap 10 (6-14) Blood Urea Nitrogen 34mg/dL (7-20) Creatinine 1.1mg/dL (0.6-1.0) Estimated GFR (Cockcroft-Gault) 58.1 Glucose Level 85mg/dL (70-99) Calcium Level 9.0mg/dL (8.5-10.1) Microbiology Micro Microbiology 07/02/16 Blood Culture - Preliminary, Resulted NO GROWTH AFTER 2 DAYS Physical Exam HEENT: Neck Supple W Full Motion, Other (JVD) Chest: Symmetric LUNGS: Other (faint upper wheeze) Heart: S1S2, RRR (SR/SB) Abdomen: Soft N/T Extremities: No Edema, No Calf Tenderness Neurology: alert, oriented, follow commands Assessment Assessment 1. AECOPD with possible developing pneumonia vs pneumonitis via CXR: known sarcoidosis and severe pulmonary HTN. 2. Acute on Chronic diastolic CHF with small bilateral pleural effusion: symptoms and elevated pro NT BNP more r/t to pulmonary issues. Compensated 3. PAFIB: SR/SB with PACs 4. Chronic Normocytic anemia: Hgb 10 5. Prerenal azotemia: r/t inadequate po intake. 6. Hypokalemia: resolved 7. HTN: controlled Recommendations 1. Continue with po lasix, maintain po hydration 2. Recent TTE with normal EF and LV function, Known intolerance to AV sid blocking agents. Continue on eliquis 3. Continue secondary prevention 4. Follow pulmonary recommendation 5. Follow up in office in 4 weeks. JJ WILSON APRN Jul 04, 2016 12:26
--- NOTE | 2016-07-04 12:44 | PDOC ---
PROGRESS NOTES Chief Complaint Chief Complaint cc: cough A/P Aspiration pneumonitis vs Aspiration pneumonia Chronic respiratory failure ? Afib HTN hx of Sarcoidosis Plan oral lasix, home dose 20 mg IV Zosyn labs reviwed, continue current care Pt has chronic respiratory failure, used 3-4 oxygen at rest, 6 L with walking. History of Present Illness History of Present Illness cough no fever no chills doing better. Vitals Vitals Vital Signs Date Time Temp Pulse Resp B/P Pulse Ox O2 Delivery O2 Flow Rate FiO2 07/04/16 12:26 94 Nasal Cannula 4.0 07/04/16 11:00 97.9 70 20 120/73 97.9 Physical Exam General: Alert, Oriented X3, Cooperative, No acute distress Heart: Regular rate (SR/SB with PACs), Normal S1, Normal S2, Other (3/6 systolic murmur to LLS border) Lungs: Clear, Crackles Abdomen: Soft, No tenderness Extremities: No cyanosis, No edema Skin: No breakdown, No significant lesion Labs LABS Laboratory Tests Test 07/04/16 06:45 White Blood Count 17.9x10^3/uL (4.0-11.0) Red Blood Count 3.33x10^6/uL (3.50-5.40) Hemoglobin 10.0g/dL (12.0-15.5) Hematocrit 31.8% (36.0-47.0) Mean Corpuscular Volume 96fL (79-100) Mean Corpuscular Hemoglobin 30pg (25-35) Mean Corpuscular Hemoglobin Concent 32g/dL (31-37) Red Cell Distribution Width 15.2% (11.5-14.5) Platelet Count 366x10^3/uL (140-400) Neutrophils (%) (Auto) 86% (31-73) Lymphocytes (%) (Auto) 4% (24-48) Monocytes (%) (Auto) 10% (0-9) Eosinophils (%) (Auto) 0% (0-3) Basophils (%) (Auto) 0% (0-3) Neutrophils # (Auto) 15.5x10^3uL (1.8-7.7) Lymphocytes # (Auto) 0.7x10^3/uL (1.0-4.8) Monocytes # (Auto) 1.7x10^3/uL (0.0-1.1) Eosinophils # (Auto) 0.0x10^3/uL (0.0-0.7) Basophils # (Auto) 0.0x10^3/uL (0.0-0.2) Sodium Level 143mmol/L (136-145) Potassium Level 4.3mmol/L (3.5-5.1) Chloride Level 102mmol/L (98-107) Carbon Dioxide Level 31mmol/L (21-32) Anion Gap 10 (6-14) Blood Urea Nitrogen 34mg/dL (7-20) Creatinine 1.1mg/dL (0.6-1.0) Estimated GFR (Cockcroft-Gault) 58.1 Glucose Level 85mg/dL (70-99) Calcium Level 9.0mg/dL (8.5-10.1) Assessment and Plan Assessmemt and Plan Problems Medical Problems: (1) COPD exacerbation Status: Acute Problems: Comment Review of Relevant I have reviewed the following items julian (where applicable) has been applied. Labs Laboratory Tests Test 07/03/16 11:23 07/04/16 06:45 Sodium Level 141mmol/L (136-145) 143mmol/L (136-145) Potassium Level 3.4mmol/L (3.5-5.1) 4.3mmol/L (3.5-5.1) Chloride Level 99mmol/L (98-107) 102mmol/L (98-107) Carbon Dioxide Level 32mmol/L (21-32) 31mmol/L (21-32) Anion Gap 10 (6-14) 10 (6-14) Blood Urea Nitrogen 36mg/dL (7-20) 34mg/dL (7-20) Creatinine 1.0mg/dL (0.6-1.0) 1.1mg/dL (0.6-1.0) Estimated GFR (Cockcroft-Gault) 64.9 58.1 Glucose Level 157mg/dL (70-99) 85mg/dL (70-99) Calcium Level 9.4mg/dL (8.5-10.1) 9.0mg/dL (8.5-10.1) Magnesium Level 2.2mg/dL (1.8-2.4) Procalcitonin 0.27ng/mL (0.00-0.10) White Blood Count 17.9x10^3/uL (4.0-11.0) Red Blood Count 3.33x10^6/uL (3.50-5.40) Hemoglobin 10.0g/dL (12.0-15.5) Hematocrit 31.8% (36.0-47.0) Mean Corpuscular Volume 96fL (79-100) Mean Corpuscular Hemoglobin 30pg (25-35) Mean Corpuscular Hemoglobin Concent 32g/dL (31-37) Red Cell Distribution Width 15.2% (11.5-14.5) Platelet Count 366x10^3/uL (140-400) Neutrophils (%) (Auto) 86% (31-73) Lymphocytes (%) (Auto) 4% (24-48) Monocytes (%) (Auto) 10% (0-9) Eosinophils (%) (Auto) 0% (0-3) Basophils (%) (Auto) 0% (0-3) Neutrophils # (Auto) 15.5x10^3uL (1.8-7.7) Lymphocytes # (Auto) 0.7x10^3/uL (1.0-4.8) Monocytes # (Auto) 1.7x10^3/uL (0.0-1.1) Eosinophils # (Auto) 0.0x10^3/uL (0.0-0.7) Basophils # (Auto) 0.0x10^3/uL (0.0-0.2) Laboratory Tests Test 07/04/16 06:45 White Blood Count 17.9x10^3/uL (4.0-11.0) Red Blood Count 3.33x10^6/uL (3.50-5.40) Hemoglobin 10.0g/dL (12.0-15.5) Hematocrit 31.8% (36.0-47.0) Mean Corpuscular Volume 96fL (79-100) Mean Corpuscular Hemoglobin 30pg (25-35) Mean Corpuscular Hemoglobin Concent 32g/dL (31-37) Red Cell Distribution Width 15.2% (11.5-14.5) Platelet Count 366x10^3/uL (140-400) Neutrophils (%) (Auto) 86% (31-73) Lymphocytes (%) (Auto) 4% (24-48) Monocytes (%) (Auto) 10% (0-9) Eosinophils (%) (Auto) 0% (0-3) Basophils (%) (Auto) 0% (0-3) Neutrophils # (Auto) 15.5x10^3uL (1.8-7.7) Lymphocytes # (Auto) 0.7x10^3/uL (1.0-4.8) Monocytes # (Auto) 1.7x10^3/uL (0.0-1.1) Eosinophils # (Auto) 0.0x10^3/uL (0.0-0.7) Basophils # (Auto) 0.0x10^3/uL (0.0-0.2) Sodium Level 143mmol/L (136-145) Potassium Level 4.3mmol/L (3.5-5.1) Chloride Level 102mmol/L (98-107) Carbon Dioxide Level 31mmol/L (21-32) Anion Gap 10 (6-14) Blood Urea Nitrogen 34mg/dL (7-20) Creatinine 1.1mg/dL (0.6-1.0) Estimated GFR (Cockcroft-Gault) 58.1 Glucose Level 85mg/dL (70-99) Calcium Level 9.0mg/dL (8.5-10.1) Microbiology 07/02/16 Blood Culture - Preliminary, Resulted NO GROWTH AFTER 2 DAYS Medications Current Medications Azithromycin (Zithromax 500mg Ivpb For Omni) 250 ml @ 250 mls/hr 1X ONCE IV Last administered on 07/02/16 11:32; Start 07/02/16 at 10:00; Stop 07/02/16 at 10:59; Status DC Methylprednisolone Sodium Succinate (Solu-Medrol 125mg Vial) 125 mg 1X ONCE IV Last administered on 07/02/16 11:31; Start 07/02/16 at 10:00; Stop 07/02/16 at 10:05; Status DC Albuterol/ Ipratropium (Duoneb) 3 ml 1X ONCE NEB Last administered on 10:16; Start 07/02/16 at 10:00; Stop 07/02/16 at 10:05; Status DC Albuterol/ Ipratropium (Duoneb) 3 ml STK-MED ONCE .ROUTE ; Start 07/02/16 at 16: 45; Stop 07/02/16 at 16:46; Status DC Albuterol/ Ipratropium (Duoneb) 3 ml RTQID NEB Last administered on 07/03/16 12:32; Start 07/03/16 at 08:00; Stop 07/03/16 at 13:48; Status DC Guaifenesin (Robitussin Dm) 10 ml PRN Q6HRS PRN PO COUGH; Start 07/03/16 at 00: 00 Albuterol/ Ipratropium (Duoneb) 3 ml 1X ONCE NEB Last administered on 00:34; Start 07/03/16 at 00:45; Stop 07/03/16 at 00:46; Status DC Potassium Chloride (Klor-Con) 40 meq 1X ONCE PO ; Start 07/03/16 at 13:00; Stop 07/03/16 at 13:05; Status DC Potassium Chloride (Klor-Con) 40 meq 1X ONCE PO Last administered on 14:43; Start 07/03/16 at 14:00; Stop 07/03/16 at 14:01; Status DC Acetaminophen (Tylenol) 325 mg PRN Q6HRS PRN PO MILD PAIN / TEMP; Start at 13:00 Acetaminophen/ Hydrocodone Bitart (Lortab 5/325) 1 tab PRN Q6HRS PRN PO MODERATE TO SEVERE PAIN; Start 07/03/16 at 13:00 Hydralazine HCl (Apresoline) 10 mg PRN Q4HRS PRN IVP ELEVATED BP, SEE COMMENTS ; Start 07/03/16 at 13:00 Ondansetron HCl (Zofran) 4 mg PRN Q8HRS PRN IV NAUSEA/VOMITING; Start 07/03/16 at 13:00 Albuterol Sulfate (Ventolin Neb Soln) 2.5 mg PRN Q4HRS PRN NEB SHORTNESS OF BREATH Last administered on 07/04/16 12:27; Start 07/03/16 at 13:00 Amlodipine Besylate (Norvasc) 10 mg DAILY PO Last administered on 07/04/16 10: 07; Start 07/04/16 at 09:00 Apixaban (Eliquis) 5 mg BID PO Last administered on 07/04/16 10:06; Start at 21:00 Furosemide (Lasix) 40 mg DAILY PO Last administered on 07/04/16 10:07; Start 07/03/16 at 14:00 Losartan Potassium (Cozaar) 100 mg DAILY PO Last administered on 07/04/16 10: 08; Start 07/03/16 at 14:00 Potassium Chloride (Klor-Con) 20 meq DAILYWBKFT PO Last administered on 10:06; Start 07/03/16 at 14:00; Stop 07/04/16 at 12:23; Status DC Non-Formulary Medication 2 puff PRN Q4-6HRS IH ; Start 07/03/16 at 13:00; Stop 07/03/16 at 13:50; Status DC Non-Formulary Medication 1 inh Q6HRS IH ; Start 07/03/16 at 18:00; Stop at 18:00; Status DC Info (Anti-Coagulation Monitoring By Pharmacy) 1 each PRN DAILY PRN MC SEE COMMENTS; Start 07/03/16 at 14:00 Albuterol/ Ipratropium (Duoneb) 3 ml Q6HRS NEB Last administered on 07/04/16 12:24; Start 07/03/16 at 18:00 Piperacillin Sod/ Tazobactam Sod 1 each 1 each PRN DAILY PRN MC SEE COMMENTS; Start 07/03/16 at 15:45 Piperacillin Sod/ Tazobactam Sod/ Sodium Chloride (Zosyn/Iv Sodium Chloride 0.9 % 50ml) 50 ml @ 100 mls/hr Q6HRS IV Last administered on 07/04/16 07:15; Start 07/03/16 at 16:00 Potassium Chloride (Klor-Con) 10 meq DAILYWBKFT PO ; Start 07/05/16 at 08:00 Active Scripts Active Klor-Con M20 (Potassium Chloride) 20 Meq Tab.er.prt 20 Meq PO DAILYWBKFT Cozaar (Losartan Potassium) 50 Mg Tablet 100 Mg PO DAILY Reported Alprazolam 0.5 Mg Tablet 1 Tab PO BID Furosemide 20 Mg Tablet 1 Tab PO DAILY Combivent Respimat Inhal (Ipratropium/Albuterol Sulfate) 4 Gm Aer.w.adap 1 Inh IH Q6HRS Eliquis (Apixaban) 5 Mg Tablet 5 Mg PO BID Norvasc (Amlodipine Besylate) 10 Mg Tablet 10 Mg PO DAILY Proair Hfa Inhaler (Albuterol Sulfate) 8.5 Gm Hfa.aer.ad 2 Puff IH PRN Q4-6HRS Vitals/I & O Vital Sign - Last 24 Hours 07/03/16 07/03/16 07/03/16 07/03/16 15:00 15:03 19:00 20:00 Temp 97.2 97.9 97.2 97.9 Pulse 88 74 70 Resp 22 20 B/P 136/68 121/58 123/67 Pulse Ox 96 96 O2 Delivery Room Air Nasal Cannula Nasal Cannula O2 Flow Rate 4.0 4.0 07/03/16 07/04/16 07/04/16 07/04/16 20:23 00:07 03:00 07:00 Temp 98.1 97.7 98.1 97.7 Pulse 55 74 Resp 20 20 B/P 104/53 128/67 Pulse Ox 93 94 91 O2 Delivery Nasal Cannula Nasal Cannula Nasal Cannula Nasal Cannula O2 Flow Rate 4.0 4.0 4.0 3.0 07/04/16 07/04/16 07/04/16 07/04/16 07:53 10:07 10:08 11:00 Temp 97.9 97.9 Pulse 70 70 70 Resp 20 B/P 120/73 120/73 120/73 Pulse Ox 94 94 O2 Delivery Nasal Cannula Nasal Cannula O2 Flow Rate 4.0 4.0 07/04/16 12:26 Pulse Ox 94 O2 Delivery Nasal Cannula O2 Flow Rate 4.0 Intake and Output 07/03/16 07/03/16 07/04/16 14:59 22:59 06:59 Intake Total 1390 ml 100 ml 640 ml Output Total 650 ml 400 ml Balance 740 ml 100 ml 240 ml JIM SLOAN MD Jul 04, 2016 12:44
[2016-07-04] MEDS ORDERED: ACETAMINOPHEN 325 MG TABLET. PO PRN (13:45)
[2016-07-04 15:00] VITALS: BP 121/64
[2016-07-04] MEDS ORDERED: DOXY100C2 PO (18:00)
[2016-07-04] MEDS ORDERED: PRED-220 PO (18:00)
--- NOTE | 2016-07-04 18:32 | PDOC ---
PULMONARY PROGRESS NOTES Subjective PT WITH NO INCREASE SOA Vitals Vital Signs Date Time Temp Pulse Resp B/P Pulse Ox O2 Delivery O2 Flow Rate FiO2 07/04/16 15:00 97.9 84 20 121/64 95 Nasal Cannula 4.0 97.9 ROS: No Nausea, No Chest Pain, No Abdominal Pain, No Increase Cough General: Alert, No acute distress HEENT: Cervical Dz Lungs: Clear, Crackles Cardiovascular: S1, S2 Abdomen: Soft Neuro Exam: Alert Extremities: No Edema Skin: Warm Labs Laboratory Tests Test 07/03/16 11:23 07/04/16 06:45 Sodium Level 141mmol/L (136-145) 143mmol/L (136-145) Potassium Level 3.4mmol/L (3.5-5.1) 4.3mmol/L (3.5-5.1) Chloride Level 99mmol/L (98-107) 102mmol/L (98-107) Carbon Dioxide Level 32mmol/L (21-32) 31mmol/L (21-32) Anion Gap 10 (6-14) 10 (6-14) Blood Urea Nitrogen 36mg/dL (7-20) 34mg/dL (7-20) Creatinine 1.0mg/dL (0.6-1.0) 1.1mg/dL (0.6-1.0) Estimated GFR (Cockcroft-Gault) 64.9 58.1 Glucose Level 157mg/dL (70-99) 85mg/dL (70-99) Calcium Level 9.4mg/dL (8.5-10.1) 9.0mg/dL (8.5-10.1) Magnesium Level 2.2mg/dL (1.8-2.4) Procalcitonin 0.27ng/mL (0.00-0.10) White Blood Count 17.9x10^3/uL (4.0-11.0) Red Blood Count 3.33x10^6/uL (3.50-5.40) Hemoglobin 10.0g/dL (12.0-15.5) Hematocrit 31.8% (36.0-47.0) Mean Corpuscular Volume 96fL (79-100) Mean Corpuscular Hemoglobin 30pg (25-35) Mean Corpuscular Hemoglobin Concent 32g/dL (31-37) Red Cell Distribution Width 15.2% (11.5-14.5) Platelet Count 366x10^3/uL (140-400) Neutrophils (%) (Auto) 86% (31-73) Lymphocytes (%) (Auto) 4% (24-48) Monocytes (%) (Auto) 10% (0-9) Eosinophils (%) (Auto) 0% (0-3) Basophils (%) (Auto) 0% (0-3) Neutrophils # (Auto) 15.5x10^3uL (1.8-7.7) Lymphocytes # (Auto) 0.7x10^3/uL (1.0-4.8) Monocytes # (Auto) 1.7x10^3/uL (0.0-1.1) Eosinophils # (Auto) 0.0x10^3/uL (0.0-0.7) Basophils # (Auto) 0.0x10^3/uL (0.0-0.2) Laboratory Tests Test 07/04/16 06:45 White Blood Count 17.9x10^3/uL (4.0-11.0) Red Blood Count 3.33x10^6/uL (3.50-5.40) Hemoglobin 10.0g/dL (12.0-15.5) Hematocrit 31.8% (36.0-47.0) Mean Corpuscular Volume 96fL (79-100) Mean Corpuscular Hemoglobin 30pg (25-35) Mean Corpuscular Hemoglobin Concent 32g/dL (31-37) Red Cell Distribution Width 15.2% (11.5-14.5) Platelet Count 366x10^3/uL (140-400) Neutrophils (%) (Auto) 86% (31-73) Lymphocytes (%) (Auto) 4% (24-48) Monocytes (%) (Auto) 10% (0-9) Eosinophils (%) (Auto) 0% (0-3) Basophils (%) (Auto) 0% (0-3) Neutrophils # (Auto) 15.5x10^3uL (1.8-7.7) Lymphocytes # (Auto) 0.7x10^3/uL (1.0-4.8) Monocytes # (Auto) 1.7x10^3/uL (0.0-1.1) Eosinophils # (Auto) 0.0x10^3/uL (0.0-0.7) Basophils # (Auto) 0.0x10^3/uL (0.0-0.2) Sodium Level 143mmol/L (136-145) Potassium Level 4.3mmol/L (3.5-5.1) Chloride Level 102mmol/L (98-107) Carbon Dioxide Level 31mmol/L (21-32) Anion Gap 10 (6-14) Blood Urea Nitrogen 34mg/dL (7-20) Creatinine 1.1mg/dL (0.6-1.0) Estimated GFR (Cockcroft-Gault) 58.1 Glucose Level 85mg/dL (70-99) Calcium Level 9.0mg/dL (8.5-10.1) Medications Active Scripts Medications Dose Route/Sig Days Date Category Alprazolam 0.5 Mg Tablet 1 Tab PO BID 07/03/16 Reported Furosemide 20 Mg Tablet 1 Tab PO DAILY 07/03/16 Reported Klor-Con M20 (Potassium Chloride) 20 Meq Tab.er.prt 20 Meq PO DAILYWBKFT 04/28/16 Rx Cozaar (Losartan Potassium) 50 Mg Tablet 100 Mg PO DAILY 04/28/16 Rx Combivent Respimat Inhal (Ipratropium/Albuterol Sulfate) 4 Gm Aer.w.adap 1 Inh IH Q6HRS 06/28/15 Reported Eliquis (Apixaban) 5 Mg Tablet 5 Mg PO BID 06/26/15 Reported Norvasc (Amlodipine Besylate) 10 Mg Tablet 10 Mg PO DAILY 06/26/15 Reported Proair Hfa Inhaler (Albuterol Sulfate) 8.5 Gm Hfa.aer.ad 2 Puff IH PRN Q4-6HRS 06/26/14 Reported Impression . IMPRESSION: 1. Acute on chronic respiratory failure secondary to acute heart failure. 2. Possible pneumonia, aspiration. 3. Chronic obstructive pulmonary disease. 4. History of sarcoid, which has been in remission for quite some time. 5. Elevated troponin level. 6. Moderate protein malnutrition, present upon admission. Plan . [employer] JT CORADO MD Jul 04, 2016 18:32
--- NOTE | 2016-07-05 07:05 | DS ---
DATE OF DISCHARGE: 07/04/2016 CHIEF COMPLAINT: Cough. HOSPITAL COURSE: The patient is a 76-year-old woman with known sarcoidosis and severe pulmonary hypertension who presented to the Emergency Room with cough and shortness of breath. Chest x-ray showed some infiltrate suspicious for possible developing pneumonia versus pneumonitis. She also was shown to have [id number] diastolic CHF with small bilateral effusions and elevated BNP. She was treated for all etiologies and actually recovered fairly quickly. No other complications arose. A recent MARVIN actually had shown a normal EF and left ventricular function. She was deemed stable from a respiratory and cardiac standpoint for discharge on 07/04/2016. PHYSICAL EXAMINATION: Please refer to note from same day. DISCHARGE DATE: 07/04/2016. DISCHARGE DISPOSITION: To home. DISCHARGE CONDITION: Improved. DISCHARGE DIAGNOSES: Chronic obstructive pulmonary disease exacerbation, congestive heart failure, and sarcoidosis. DISCHARGE MEDICATIONS: Please refer to MAR. DISCHARGE INSTRUCTIONS: The patient will follow up with PCP and Pulmonary as previously arranged. GRACE DANIELS MD DR: UR/nts JOB#: [id number] / [id number] PAOLA Hernandez MD MTDD
[2016-07-05] MEDS ORDERED: POTASSIUM CHLORIDE 20 MEQ TABLET.ER. PO SCH (08:00)
== END 2016-07-04 20:12 | disposition home or self-care (01) | DRG 177 ==
LOC: ER 09:05 → ED HOLD 12:30 → INTOOBSV 12:30 → OBSVTOIN 12:30 → 5 SOUTH 17:50
PROVIDERS: ADMIT Internal Medicine; ATTEND Internal Medicine
DX: J69.0 Pneumonitis due to inhalation of food and vomit (principal); J96.21 Acute and chronic respiratory failure with hypoxia; I50.43 Acute on chronic combined systolic (congestive) and diastolic (congestive) heart failure; J44.1 Chronic obstructive pulmonary disease with (acute) exacerbation; E44.0 Moderate protein-calorie malnutrition; I11.0 Hypertensive heart disease with heart failure; D86.9 Sarcoidosis, unspecified; I48.0 Paroxysmal atrial fibrillation; I27.2 Other secondary pulmonary hypertension; E87.6 Hypokalemia; D64.9 Anemia, unspecified; Z68.22 Body mass index [BMI] 22.0-22.9, adult; Z82.49 Family history of ischemic heart disease and other diseases of the circulatory system; Z87.891 Personal history of nicotine dependence; Z90.710 Acquired absence of both cervix and uterus
CPT/HCPCS: 36415; 71010; 80048; 80076; 81001; 82553; 83735; 83880; 84145; 84443; 84484; 85007; 85027; 87040; 87086; 93005; 94250; 94640; 94760; J0456; J2543; J2930; J7620; 92610